=== PATIENT | male | born 1980 | race Caucasian/White ===

== ENCOUNTER 2017-08-18 21:13 | Emergency (ER) | payer SELFPAY ==
[~2017-08-18] VITALS: Ht 175.3 cm; Wt 105.0 kg
[2017-08-18 21:32] VITALS: BP 133/72; PULSE 70; RESP 18; TEMP 98.2; O2SAT 98
[2017-08-18] MEDS ORDERED: DOXY100C PO (21:46)
--- NOTE | 2017-08-18 21:46 | PD ---
HPI Chief Complaint: BELLY BUTTON LESION Time Seen by Provider: 21:36 Travel History International Travel<30 days: No Contact w/Intl Traveler<30days: No Traveled to known affect area: No History of Present Illness HPI JUST NOTED A LESION ON HIS BELLY BUTTON 2 DAYS AGO, NOW SOME REDNESS TO IT, DENIES F/V/N/D/CP/ABDPAIN AT THIS TIME...NO ALLEVIATING/AGGRAVATING FACTORS DENIES PMHX DENIES PSHX CAN'T RECALL THE REACTION TO PCN OR SULFA SINCE THEY WERE ALL IN HIS YOUTH [facility] Past Medical History Diminished Hearing: No Immunizations Current: Yes Social History Alcohol Use: Yes (OCC) Tobacco Use: Yes (/ PPD) Substance Use: No Allergies-Medications (Allergen,Severity, Reaction): Coded Allergies: Sulfa (Sulfonamide Antibiotics) (Unverified Allergy, Severe, UNKNOWN, 05/31) penicillin G (Unverified Allergy, Severe, UNKNOWN, 05/31/17) Reported Meds & Prescriptions Reported Meds & Active Scripts Active No Active Prescriptions or Reported Medications Review of Systems Except as stated in HPI: all other systems reviewed are Neg General / Constitutional: No: Fever Eyes: No: Visual changes HENT: No: Headaches Cardiovascular: No: Chest Pain or Discomfort Respiratory: No: Shortness of Breath Gastrointestinal: No: Abdominal Pain Genitourinary: No: Dysuria Musculoskeletal: No: Pain Skin: Positive Lesions Neurologic: No: Weakness Psychiatric: No: Depression Endocrine: No: Polydipsia Hematologic/Lymphatic: No: Easy Bruising Physical Exam Narrative GENERAL: SKIN: Warm and dry. HEAD: Atraumatic. Normocephalic. EYES: Pupils equal and round. No scleral icterus. No injection or drainage. ENT: No nasal bleeding or discharge. Mucous membranes pink and moist. NECK: Trachea midline. No JVD. CARDIOVASCULAR: Regular rate and rhythm. RESPIRATORY: No accessory muscle use. Clear to auscultation. Breath sounds equal bilaterally. GASTROINTESTINAL: Abdomen soft, non-tender, nondistended. SMALL HEMANGIOMA OF SKIN, HOWEVER DOES HAVE A SMALL AREA OF CELLULITIS ON UMBILICUS MUSCULOSKELETAL: Extremities without clubbing, cyanosis, or edema. No obvious deformities. NEUROLOGICAL: Awake and alert. No obvious cranial nerve deficits. Motor grossly within normal limits. Five out of 5 muscle strength in the arms and legs. Normal speech. PSYCHIATRIC: Appropriate mood and affect; insight and judgment normal. Data Data Last Documented VS Vital Signs Date Time Temp Pulse Resp B/P (MAP) Pulse Ox O2 Delivery O2 Flow Rate FiO2 08/18/17 21:32 98.2 70 18 133/72 (92) 98 MDM Medical Decision Making Medical Screen Exam Complete: Yes Emergency Medical Condition: Yes Medical Record Reviewed: Yes Differential Diagnosis HEMANGIOMA V CELLULITIS V ABSCESS Narrative Course UPON EXAM NO E/O ABSCESS, HOWEVER A HEALING HEMANGIOMA WAS NOTED WHICH IS HEALING WELL BUT AT 12 OCLOCK AREA OF CELLULITIS NOTED Diagnosis Primary Impression: EARLY CELLULITIS Scripts Doxycycline Hyclate (Doxycycline Hyclate) 100 Mg Cap 100 MG PO BID for Infection, #20 CAP 0 Refills Prov: Reggie Davis MD 08/18/17 Disposition: 01 DISCHARGE HOME Condition: Stable Reggie Davis MD Aug 18, 2017 21:46
== END 2017-08-18 21:54 | disposition home or self-care (01) ==
LOC: PHEFT 21:13
DX: L03.311 Cellulitis of abdominal wall (principal)
CPT/HCPCS: 99283

== ENCOUNTER 2017-11-09 19:27 | Emergency (ER) | payer SELFPAY ==
[~2017-11-09] VITALS: Ht 172.7 cm; Wt 104.3 kg
[~2017-11-09 19:27] MED LIST: DOXY100C PO
[2017-11-09 19:35] VITALS: BP 129/71; PULSE 70; RESP 16; TEMP 98; O2SAT 98
[2017-11-09] MEDS ORDERED: LIDOCAINE HCL 1% 30 ML VIAL INFIL ONE (20:00)
[2017-11-09] MEDS ORDERED: LIDOCAINE HCL 1% PF 10 ML VIAL INFIL ONE (20:15)
[2017-11-09] MEDS ORDERED: ONDANSETRON ODT 4 MG TAB PO ONE (21:00)
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
[2017-11-09] MEDS ORDERED: IBUP1TAB7 PO (21:03)
[2017-11-09] MEDS ORDERED: IBUPROFEN 800 MG TAB PO ONE (21:15)
== END 2017-11-09 21:41 | disposition home or self-care (01) ==
LOC: PHEFT 19:27
DX: S71.111A Laceration without foreign body, right thigh, initial encounter (principal); F17.200 Nicotine dependence, unspecified, uncomplicated; Z88.2 Allergy status to sulfonamides; Z88.0 Allergy status to penicillin; W26.0XXA Contact with knife, initial encounter
CPT/HCPCS: 12031

== ENCOUNTER 2017-11-24 21:14 | Emergency (ER) | payer SELFPAY ==
[~2017-11-24 21:14] MED LIST changes: +IBUP1TAB7 PO
== END 2017-11-24 21:45 | disposition left against medical advice (07) ==
LOC: PHED 21:14
DX: Z48.02 Encounter for removal of sutures (principal)
CPT/HCPCS: 99281

== ENCOUNTER 2017-11-25 14:48 | Emergency (ER) | payer SELFPAY ==
[~2017-11-25] VITALS: Ht 177.8 cm; Wt 99.9 kg
[2017-11-25 14:54] VITALS: BP 131/61; PULSE 84; RESP 16; TEMP 98.2; O2SAT 97
--- NOTE | 2017-11-25 15:33 | PD ---
HPI Chief Complaint: Wound/Suture/Staple Re-Check Time Seen by Provider: 15:20 Travel History International Travel<30 days: No Contact w/Intl Traveler<30days: No Traveled to known affect area: No History of Present Illness HPI This is a 37-year-old male here for suture removal to his right thigh. He sustained a laceration on 11/09/17. He denies any indication of infection. No pain. No drainage site. No increasing redness. No fever or chills. His girlfriend attempted to remove one suture and was unsuccessful. [facility] Past Medical History Medical History: Denies Significant Hx Diminished Hearing: No Immunizations Current: Yes Tetanus Vaccination: < 5 Years Influenza Vaccination: No Past Surgical History Surgical History: No Previous Surgery Social History Alcohol Use: Yes (OCC) Tobacco Use: Yes (10/18 PPD) Substance Use: No Allergies-Medications (Allergen,Severity, Reaction): Coded Allergies: Sulfa (Sulfonamide Antibiotics) (Verified Allergy, Severe, UNKNOWN, 11/25/17 ) penicillin G (Verified Allergy, Severe, UNKNOWN, 11/25/17) Reported Meds & Prescriptions Reported Meds & Active Scripts Active No Active Prescriptions or Reported Medications Review of Systems Except as stated in HPI: all other systems reviewed are Neg General / Constitutional: No: Fever Physical Exam Narrative GENERAL: Alert and well-appearing 37-year-old male SKIN: Warm and dry. Well-healed laceration to the right thigh. [address]. No evidence of infection HEAD: Normocephalic. EYES: No injection or drainage. NECK: Supple MUSCULOSKELETAL: No cyanosis, or edema. Data Data Last Documented VS Vital Signs Date Time Temp Pulse Resp B/P (MAP) Pulse Ox O2 Delivery O2 Flow Rate FiO2 11/25/17 14:54 98.2 84 16 131/61 (84) 97 MDM Medical Decision Making Medical Screen Exam Complete: Yes Emergency Medical Condition: Yes Differential Diagnosis Suture removal, wound infection, abscess Narrative Course This is a 37-year-old male here for removal of sutures placed in his right thigh several weeks ago. His spouse attempted to remove one suture and was not successful. 3 mattress sutures were removed today. No evidence of infection Diagnosis Primary Impression: Visit for suture removal Referrals: [facility] Scripts No Active Prescriptions or Reported Meds Disposition: 01 DISCHARGE HOME Condition: Stable Cornelia Pandya Nov 25, 2017 15:33
== END 2017-11-25 16:05 | disposition home or self-care (01) ==
LOC: PHEFT 14:48
DX: Z48.02 Encounter for removal of sutures (principal)
CPT/HCPCS: 99281